=== PATIENT | female | born 1955 | race Caucasian/White ===

== ENCOUNTER 2023-12-17 10:02 | Outpatient (CLI) | payer MEDICARE, OTHER, SELFPAY | END 2023-12-17 10:03 | disposition home or self-care (01) | LOC: INJ CL 10:03 | PROVIDERS: PCP Family Medicine; Visit Provider Family Medicine | DX: M54.16 Radiculopathy, lumbar region (principal); M51.36 Other intervertebral disc degeneration, lumbar region | CPT/HCPCS: 62323; J0702; Q9966 ==

== ENCOUNTER 2024-09-22 09:49 | Outpatient (CLI) | payer MEDICARE, OTHER, SELFPAY ==
--- OUTSIDE RECORDS SUMMARY | 2024-09-17 11:38 | XMS_ITS | Clinical Summary ---
Author Organization [employer] [facility] Address [place], [place] [address] Care Team Providers Care Nurse Practitioner Hospitalist Name Role Phone Ramon Giraldo MD Primary Care Provider [phone] Destiny Coulter MD Unavailable Kris Uriostegui MD Unavailable [phone] Romel Frausto MD Unavailable [phone] Danielito Stokes MD Unavailable [phone] Allergies Active Allergy Reactions Criticality Noted Date Comments Erythromycin Hives High 05/15/2006 Penicillins Itching 05/15/2006 Sulfamethoxazole-Trimethoprim Shortness Of Breath Unknown 05/15/2006 Medications calcium-vitamin D3-vitamin K (VIACTIV) 500-100-40 mg-unit-mcg chewable Chew 1 Tablet by mouth once daily. 0 0 Active multivitamins-field examiner als-lutein (CENTRUM SILVER) 0.4 mg-300 mcg- 250 mcg tab Take 1 Tablet by mouth once daily. 0 6 Active fluticasone (50 mcg per actuation) nasal solution (FLONASE)Indication s:ETD (Eustachian tube dysfunction), bilateral Inhale 1 Wiley into affected nostril(s) once daily. 16 g 6 3 Active estradioL (VAGIFEM) 10 mcg tab vaginal tabletIndications:G enitourinary syndrome of menopause Insert 1 Tablet (10 mcg) into the vagina every Saturday and . 24 Tablet 3 4 Active triamcinolone 0.1 % ointment 4 Active lisinopriL (PRINIVIL; ZESTRIL) 20 mg tabletIndications:E ssential hypertension Take 1 Tablet (20 mg) by mouth once daily. For blood pressure. 90 Tablet 3 4 Active valACYclovir (VALTREX) 500 mg tabletIndications:H erpes simplex vulvovaginitis TAKE 1 TABLET TWICE A DAY FOR 5 DAYS NEEDED 30 Tablet 3 4 Active Active Problems Problem Noted Date Diagnosed Date Low back pain radiating to right leg 12/22/2023 Overview (12/22/2023): ~ December 2023: L4-L5 epidural steroid injection by Dr. Pate. Pap smear for cervical cancer screening 10/26/19 Overview (10/26/2022): 09/2022 NIL/HPV negative Plan: Routine screening Hamstring strain, left, initial encounter 2022 Trigger thumb, left thumb 04/10/2022 Osteoarthritis of left thumb 04/10/2022 Cellulitis of hand 02/15/2022 Dog bite 02/15/2022 COVID-19 02/15/2022 Lactose intolerance 05/09/2021 Overview (05/09/2021): diarrhea Primary osteoarthritis of fi rst carpometacarpal joint of left hand 12/05/2018 Overview (06/24/2020): November 2018: cortisone injection to [facility] Joint by Dr. Giraldo, 6 months of very good relief. November 2019: repeat Cortisone injection of Left Thumb CMC joint. 6 month of very good relief. June 2020: repeat Cortisone injection of Left Thumb CMC joint. Adenomatous colon polyp 12/02/2017 Overview (12/01/2020): Colonoscopy 11/2017 polyps, repeat in 3 years Incomplete Colonoscopy 11/2020 redundant colon, CT colonography negative for polyps, recommend repeat CT colonography every 5 years Bursitis of right hip 11/08/2016 Overview (11/09/2016): Oct 2016: Greater Trochanteric Bursa injection by Dr. Giraldo. Essential hypertension 02/04/2014 Overview (01/08/2024): December 2023: increased lisinopril to 20mg. Osteopenia 03/13/2013 Varicose vein 01/18/2012 Genital herpes, unspecified 04/29/2009 Overview (04/29/2009): discussed both treatment for each episode and prevnetion. For now patient would like to be on treatment jsut for episodes. Has prescription for either. Anxiety state, unspecified 10/21/2006 Osteoarthrosis, unspecified whether generalized or localized, hand 10/21/2006 Overview (04/14/2014): both thumbs CMC. Other atopic dermatitis and related conditions 0 10/21/2006 HERNIA, UMBILICAL W/OBSTRUCTION W/O GANGRENE Resolved Problems Problem Noted Date Diagnosed Date Resolved Date Iron deficiency anemia 02/17/201604/26 Right hip pain 12/25/2014 02/17/2016 Overview (12/25/2014): August 2014: Right Greater Trochanteric Bursa injection with great response initially, and pain gradually returned. December 2014: repeat Greater Trochanteric Bursa injection. Thickened endometrium 11/10/20142015 PMB (postmenopausal bleeding) 11/10/2014 02/17/2016 Trigger thumb of right hand 04/14/2014 02/17/2016 Overview (04/14/2014): Started January 2014, injection March 2014. 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 02/17/2016 Hallux valgus 07/03/2009 02/04/2014 Routine general medical exam ination at a health care facility 12/10/2007 02/17/2016 Overview (12/10/2007): Last colonoscopy 11/2007, repeat in 10 yrs Headache(784.0) 10/21/2006 02/04/2014 FX CLOSED METATARSAL 07/26/2001 007 Lumbago 10/21/2006 PELVIC PAIN 10/21/2006 Encounters Date Type Department Care Team Description 07/28/2024 11:10 AM DUST CONTROL ENGINEER Office Visit [facility] [address] [place] [address] Ramon Giraldo MD Musculoskeletal Problem (Follow-up Low Back Pain) 07/28/2024 Travel 07/24/2024 Travel 07/16/2024 Orders Only [facility] [address] [place] [address] Doris Hartmann PA <No scans attached> 06/22/2024 2:45 PM CDT Office Visit [facility] [address] [facility] [place] [address] Shabbir Cuello MD Follow Up (Plugged feeling in ear, bilateral) 06/22/2024 Travel from Last 3 Months Immunizations Name Administration Dates Next Due AMB Influenza, IIV3 (Age >=3 years)(Flu Clinic Only) 07/09/2012,06/29/2011,07/06/2010,07/14 COVID-19 VACCINE COMIRNATY (PFIZER-BIONTECH 30MCG/0.3ML) 12YO+ PFS 02/04/2024 COVID-19 vaccine (Moderna 100mcg/0.5mL) PF, MDV 12/14/2021,08/15/2021,01/04/2021,11/30 COVID-19 vaccine (Pfizer-Bio NTech 30mcg/0.3mL) 12YO+ BIVALENT PF, MDV 02/01/2023 HepA-HepB (Twinrix) 06/24/2009,01/19/2009,2008 Influenza A (H1N1), Inactiva alex (Age >=3 Years) 09/28/2009 Influenza, High-dose Quadriv alent Inactivated 06/19/2023,05/26/2022 Influenza, IIV3 (Age >=3 years) 06/24/20 09,07/24/2007,08/08/2005,07/26,07/31/2000 Influenza, IIV4 06/30/2021, 0,06/26/2019,06/07,06/05/2016,05/29/2015,07/05/2014 Influenza,CCIIV4 PRESERV FREE 07/17/2018 Pneumococcal Conj 20-valent (Prevnar 20) 12/21/2022 RSV, Recombinant ADJ Reconst ituted (Arexvy 120MCG/0.5mL) 09/02/2023 Td (Age >=7 Years) 03/17/2004 Td, Preservative Free (age >= 7 Years) 9 Tdap 03/12/2009 Zoster (Shingrix-RZV, recombinant) 01/13/2019, Family History Medical History Relation Name Comments Cancer Brother 1 bladder Diabetes Brother 1 Congenital heart disease Brother 2 Sharmaine n Syndrome, at age 5yo. Alcohol/Drug Father Brayden ETOH Alcoholism Father Brayden COPD Father Brayden Other Father Brayden emphysema at 71 Cancer Maternal Grandmother multipl e myloma Heart Disease Maternal Grandmother Anesthesia Problem Mother Fabi Heart Disease Mother Fabi 64 Hyperlipidemia Mother Fabi Hypertension Mother Fabi Osteoarthritis Mother Fabi Osteoporosis Mother Fabi Cancer-breast No Family History Relation Name Status Comments Brother 1 Alive Brother 2 Father Brayden Maternal Grandfather Maternal Grandmother Mother Fabi Paternal Grandfather Paternal Grandmother Social History Tobacco Use Types Packs/Day Years Used Date Smoking Tobacco: Never Passive Smoke Exposure: Never Smokeless Tobacco: Never Tobacco Cessation:Counseling Given: Not Answered Alcohol Use Standard Drinks/Week Comments Yes 0 (1 standard drink = 0.6 oz pur e alcohol) 1 drinks daily [facility] Utilities Answer Date Recorded Do you have trouble paying f or utilities (for example, heat, electricity, water, phone)? Yes 09/04/2023 PHQ-2 Answer Date Recorded PHQ-2 TOTAL SCORE 0 05/19/2024 Social Connections Answer Date Recorded Do you often feel lonely or isolated from those around you? 0 09/04/2023 Financial Resource Strain Answer Date R ecorded Difficulty of Paying Living Expenses 3 09/04/2023 Difficulty of Paying Living Expenses Not on file 09/04/2023 Food Insecurity Answer Date Recorded Do you worry your food will run out before you are able to buy more? 1 09/04/2023 Transportation Needs Answer Date Record ed Does lack of transportation keep you from medica l appointments? 1 09/04/2023 Does lack of transportation keep you from work, meetings or getting things that you need? 1 09/04/2023 Housing Stability Answer Date Recorded What is your housing situation today? 1 09/04/2023 Comments No Sex and Gender Information Value Date Recorded Sex Assigned at Not on file Legal Sex Female 5:25 AM DUST CONTROL ENGINEER Gender Identity Not on file Sexual Orientation Not on file Obstetrics History Para Term AB IAB SAB Ectopic Multiple Livin g Live Births 2 2 2 0 0 0 0 0 0 2 2 Date Outcome GA Total Labor Labor//3rd Weight Sex Type Anes PTL Grecia A1 A5 Name Clin 11/07 Term M C-Secti on Living 03/07 Term F Induced Living Last Filed Vital Signs Vital Sign Reading Time Taken Comments Blood Pressure 150/87 07/28/2024 11:13 AM DUST CONTROL ENGINEER Pulse 67 07/28/2024 11:13 AM DUST CONTROL ENGINEER Temperature 36.9 C (98.4 F) 02/22/2022 1:47 PM CDT Respiratory Rate 16 02/16/2022 2:32 AM CDT Oxygen Saturation 100% 07/28/2024 11: 13 AM DUST CONTROL ENGINEER Inhaled Oxygen Concentration - - Weight 56.2 kg (123 lb 14.4 oz) 024 11:13 AM DUST CONTROL ENGINEER Height 164.6 cm (5' 4.8) 07/28/2024 11 :13 AM DUST CONTROL ENGINEER Body Mass Index 20.74 07/28/2024 11:13 AM DUST CONTROL ENGINEER Plan of Treatment Upcoming Encounters Date Type Department Care Team (Late st Contact Info) Description 09/22/2024 10:20 AM DUST CONTROL ENGINEER Office Visit [facility] [address] [place] [address] Rob Pate MD [address] [place] [address] Health Maintenance Due Date Last Done Comments COVID-19 vaccine series ( season) 2024 02/04/2024, 06/19/2023, 02/01/2023, Additional history exists Influenza for age 65+ 05/17/2024 06/19/2023 , 05/26/2022, 06/30/2021, Additional history exists Mammogram for age 45-75 04/15/2025 04/15/20, 04/12/2023, 04/09/2022, Additional history exists Depression screening for age 12+ 05/22/2025 05/22/2024, 05/21/2024, 05/19/2024, Additional history exists Medicare Wellness for age 65+ 05/23/2025 05/22/2024, 02/01/2023 BMI (ht and wt on same day) for age 18+ 07/28/2025 07/28/2024, 05/22/2024, 09/20/2023, Additional history exists CT Colonography for age 45-75 11/29/2025 11/29/2020 Tetanus booster 04/27/2029 04/27/2019, 02/15, 03/17/2004 Lipids for age 45-75 06/09/2029 06/09/2024, 01/21/2024, 02/05/2023, Additional history exists Tdap Completed 03/12/2009 Hepatitis C screening for ag e 18-79 Completed 04/07/2018 Zoster (shingles) series for age 50+ Completed 01/13/2019, 11/13/2018 DEXA/DXA scan for age 65+ Completed 2021, 02/12/2019, 02/21/2016, Additional history exists Pneumococcal series for age 50+ Completed RSV vaccine for adults or Completed 09/02/2023 Medical Devices Implanted Type Area Drafter Geological Device Identifier Shelf Expiration Date Model / Serial / Lot Screw 2.7x20mm Bio Compression - [id number] Implanted:Qty: 1 on 08/02/2009 at [facility] Left: Foot [employer] 02/14/2011 [id number] # / / [id number] Explanted Type Area Drafter Geological Device Identifier Shelf Expiration Date Model / Serial / Lot Wire Kirs .[id number] Smooth6/Pk - [id number] Explanted:Qty: 1 on 08/02/2009 at [facility] Left: Foot DOROTHY 1646--000 # / / LOAD#[id number] Wire Kirs .[id number] Smooth6/Pk - [id number] Explanted:Qty: 1 on 08/02/2009 at [facility] Left: Foot VERAUY 1644--000 # / / LOAD#[id number] Procedures Procedure Name Priority Date/Time Associated Diagnosis Comments LIPID PANEL W REFLEX MEASURED LDL Routine 06/09/2024 12:00 AM CDT Hypercholesterolemi a XR MAMMO OREN BILAT SCREEN Routine 04/15/2024 11:12 AM CDT Encounter for screening mammogram for malignant neoplasm of breast XR DXA BONE DENSITY 2 SITES AXIAL Routine 03/05/2022 11:17 AM CDT Osteopenia, unspecified location CT ABDOMEN PELVIS COLONOGRAPHY DIAGNOSTIC W Routine 11/29/2020 12:48 PM CDT History of colon polyps Procedure and treatment not carried out for other reasons ANTI HCV Routine 04/07/2018 8:54 AM CDT Need for hepatitis C screening test from Last 3 Months or Most Recently Relevant to Health Maintenance Results * (ABNORMAL) LIPID PANEL W REFLEX MEASURED LDL (06/09/2024 12:00 AM CDT) CHOLESTEROL, TOTAL 217(H) <200 mg/dL [facility] HDL CHOLESTEROL 86 > OR = 50 mg/dL [facility] TRIGLYCERIDES 76 <150 mg/dL [facility] LDL-CHOLESTEROL 114(H) mg/dL (calc) [facility] Comment: Reference range: <100 Desirable range <100 mg/dL for primary prevention; <70 mg/dL for patients with CHD or diabetic patients with > or = 2 CHD risk factors. LDL-C is now calculated using the Erasto-Peralta calculation, which is a validated novel method providing better accuracy than the Friedewald equation in the estimation of LDL-C. Erasto SS et al. EZE. 2013;310(19): 6209-0033 (http://education.[employer]/faq/YUH862) CHOL/HDLC RATIO 2.5 <5.0 (calc) [facility] NON HDL CHOLESTEROL 131(H) <130 mg/dL (calc) [facility] Comment: For patients with diabetes plus 1 major ASCVD risk factor, treating to a non-HDL-C goal of <100 mg/dL (LDL-C of <70 mg/dL) is considered a therapeutic option. Blood BLOOD SPECIMEN / Unknown 06/09/2024 06/09/2024 7:58 AM CDT Ramon Giraldo MD CHEMISTRY Final Res ult [facility] [address] [place] [address], [facility] [address] [place] [address] * XR MAMMO OREN BILAT SCREEN (04/15/2024 11:12 AM CDT) Anatomical Region Laterality Modality BREASTS, Breast Left, Breast Right Bilateral Mammography Impressions 04/16/2024 1:38 PM CDT There is no radiographic evidence for malignancy. Recommend annual mammograms. MAMMOGRAM ASSESSMENT: ACR 1 Negative PATIENTS: You will also receive a letter with your examination results in an easy to read format. If you have questions about your results, please contact your referring provider. Narrative 04/16/2024 1:38 PM CDT For Patients: As a result of the 21st Century Cures Act, medical imaging exams and procedure reports are released immediately into your electronic medical record. You may view this report before your referring provider. If you have questions, please contact your health care provider. XR MAMMO OREN BILAT SCREEN [[id number]] CLINICAL HISTORY: This is an asymptomatic 69 y.o. patient. INDICATION FOR EXAM: Mammogram Screening. TECHNIQUE: CC & MLO views were obtained. This study was evaluated with the assistance of Computer-Aided Detection. Breast Tomosynthesis was used in interpretation. COMPARISON FILM: Yes 04/12/23 [facility] 04/09/22 [facility] FINDINGS: The breasts are heterogeneously dense, which may obscure small masses. There are no dominant masses, suspicious micro calcifications or areas of architectural distortion. us Ramon Giraldo MD MAMMO Final Res ult * (ABNORMAL) XR DXA BONE DENSITY 2 SITES AXIAL (03/05/2022 11:17 AM CDT) Anatomical Region Laterality Modality Spine, HIPS, HIPL, HIPR Other Impressions 03/06/2022 3:41 PM CDT Osteopenia. RECOMMENDATIONS: The National Osteoporosis Foundation recommends pharmacologic treatment for patients with T-scores of -2.5 or less, patients with prior history of fragility fractures, or patients with 10-year probability of greater than 3% at hips or greater than 20% of suffering major osteoporotic fractures. Recommend continued optimization of calcium and vitamin D intake through dietary means and/or supplementation and regular exercise. Repeat scan recommended in 3-5 years. Sara Molina PA-C [facility] 03/06/2022 Narrative 03/06/2022 3:41 PM CDT For Patients: Results are automatically released to your [facility] ([employer]) account once available, in compliance with federal regulations. This means that you may see your results before your provider has had a chance to review them. Please allow 2-3 business days for your provider to comment on the results. XR DXA Bone Mineral Density (BMD) EXAM LOCATION: [address] [address] PATIENT NAME: Kadie Ibrahim DATE OF : 1955 EXAM DATE: 03/05/2022 REQUESTING PROVIDER: Lissa Doyle MD GENDER AT : female HEIGHT: 5' 5 (02/15/2022) WEIGHT: 121 lb (02/22/2022) MENOPAUSAL STATUS: Postmenopausal RACE/ETHNICITY: White RISK FACTORS: Family History of Osteoporosis, Family History of Hip Fracture (parental) and White Race CURRENT MEDICATION FOR BONE LOSS: NONE INDICATION: Follow-up of existing osteopenia COMPARISON DATE(S): 2019 DXA scans are compared to prior studies for a patient only when the two (or more) studies were performed on the same scanner. It is not possible to compare data generated on one scanner to data from another because there are not standards in DXA equipment. This applies even if the two scanners are made by the same jack prizer. PROCEDURE: Dual-energy x-ray absorptiometry performed with routine technique. Reporting is completed in the form of a T-score. The T-score represents the standard deviation from peak bone mass based on young healthy adult. A Z-score is used for diagnosis in premenopausal women, and for men under the age of 50. FINDINGS: RESULT LUMBAR SPINE L1 - L4 BMD: 1.123 g/cm2 T-Score: - 0.5 Z-Score: + 1.4 Change from prior in 2019: Decrease 1.1%. RESULTS FEMUR Left femoral neck BMD: 0.801 g/cm2 T-Score: - 1.7 Z-Score: + 0.0 Change from prior in 2019: Decrease 2.8%. Right femoral neck BMD: 0.784 g/cm2 T-Score: - 1.8 Z-Score: - 0.2 Change from prior in 2019: Decrease 5.3%. Left hip BMD: 0.818 g/cm2 T-Score: - 1.5 Z-Score: - 0.1 Change from prior in 2019: Decrease 3.8%. Right hip BMD: 0.809 g/cm2 T-Score: - 1.6 Z-Score: - 0.2 Change from prior in 2019: Decrease 2.5%. WHO criteria: Normal: T-score at or above -1 SD Osteopenia: T-score between -1.1 and -2.4 SD Osteoporosis: T-score at or below -2.5 SD FRAX RISK CALCULATION (USED FOR OSTEOPENIA ONLY): 10-year probability of major osteoporotic fracture: 16.6%. 10-year probability of hip fracture: 1.3%. us Lissa Doyle MD DEXA Final Result * CT ABDOMEN PELVIS COLONOGRAPHY DIAGNOSTIC W (11/29/2020 12:48 PM CDT) Anatomical Region Laterality Modality Abdomen Other 11/29/2020 12:4 8 PM CDT Narrative 11/29/2020 5:30 PM CDT EXAM DATE: 11/29/2020 EXAM: CT COLONOGRAPHY LOCATION: [facility] DATE/TIME: 11/29/2020 1:00 PM INDICATION: Diagnostic; surveillance of resected polyp(s). Personal history of 19 mm serrated adenomatous colon polyp. Incomplete colonoscopy due to colonic redundancy. Colonoscopy reached the transverse colon. COMPARISON: Colonoscopy report from earlier today. TECHNIQUE: Prone and supine CT abdomen and pelvis with air insufflation per rectum, with image postprocessing. Oral contrast. Dose reduction techniques were used. CONTRAST: None. FINDINGS: COLON: Colon is tortuous and redundant. Colon is otherwise normal with no polyp, mass or stricture. No colonic perforation. All segments well seen. C Score: C1 Note: CT colonography is not intended for the detection of diminutive polyps 5 mm or less. ADDITIONAL FINDINGS: No significant finding in the liver, spleen, pancreas, adrenal glands, and kidneys. Normal caliber abdominal aorta. No pelvic masses. E Score: E1, Normal examination or anatomic variant IMPRESSION: 1. No colon polyp, mass or stricture. 2. Colonic tortuosity and redundancy. 3. No significant extracolonic findings. Procedure Note Robert Huerta MD - 12/01/2020 EXAM DATE: 11/29/2020 EXAM: CT COLONOGRAPHY LOCATION: [facility] DATE/TIME: 11/29/2020 1:00 PM INDICATION: Diagnostic; surveillance of resected polyp(s). Personalhistory of 19 mm serrated adenomatous colon polyp. Incomplete colonoscopy due to colonic redundancy. Colonoscopy reached the transverse colon. COMPARISON: Colonoscopy report from earlier today. TECHNIQUE: Prone and supine CT abdomen and pelvis with air insufflationper rectum, with image postprocessing. Oral contrast. Dose reductiontechniques were used. CONTRAST: None. FINDINGS: COLON: Colon is tortuous and redundant. Colon is otherwise normal with no polyp,mass or stricture. No colonic perforation. All segments well seen. C Score: C1 Note: CT colonography is not intended for the detection of diminutivepolyps 5 mm or less. ADDITIONAL FINDINGS: No significant finding in the liver, spleen,pancreas, adrenal glands, and kidneys. Normal caliber abdominal aorta. No pelvicmasses. E Score: E1, Normal examination or anatomic variant IMPRESSION: 1. No colon polyp, mass or stricture. 2. Colonic tortuosity and redundancy. 3. No significant extracolonic findings. us Erasto Vernon MD CT Final Res ult * ANTI HCV [[id number]] (04/07/2018 8:54 AM CDT) HEPATITIS C ANTIBODY Non-React mio Non-React mio 04/07/2018 4:13 PM CDT [facility] Comment:Antibodies to HCV no t detected; does not exclude the possibility of exposure to HCV. Blood BLOOD SPECIMEN / Unknown Venipuncture / Unknown 04/07/2018 8:54 AM CDT 04/07/2018 8:54 AM CDT us Esha Jeffery MD SEND OUTS Final Resul t [facility] [address] [place] [address], from Last 3 Months or Most Recently Relevant to Health Maintenance Insurance MEDICARE PB ONLY Host Committee MEDICARE PART B HB ONLY ATTN: [employer] PAY[employer] #[id number] [address] Advance Directives * Full Code (Latest Code Status on File) Date Activated Date Inactivated Comments 02/15/2022 11:05 AM 02/16/2022 1:04 PM Question Answer Comments Code Status Discussion: Reviewed Preferences * Full Code Date Activated Date Inactivated Comments 01/05/2015 10:03 AM 01/05/2015 3:26 PM * Full Code Date Activated Date Inactivated Comments 11/10/2014 7:55 AM 11/10/2014 1:25 PM Care Teams Nurse Practitioner Hospitalist Relationship Specialty Start Date End Date Ramon Giraldo MD [address] [place] [address] PCP - General Family Practice 12/21/22 [place] [address] [place] [address] Dermatology Family Practice 02/01/23 Kris Uriostegui MD [address] [facility] [address] [place] [address] Surgery - Otolaryngology 02/01/23 [place] [address] [place] [address] Sports Medicine - Family Medicine 02/01/23 [place] [address] [place] [address] Obstetrics and Gynecology 05/22/24
== END 2024-09-22 09:50 | disposition home or self-care (01) ==
LOC: INJ CL 09:50
PROVIDERS: PCP Family Medicine; Visit Provider Family Medicine
DX: M54.16 Radiculopathy, lumbar region (principal); M51.362 Other intervertebral disc degeneration, lumbar region with discogenic back pain and lower extremity pain
CPT/HCPCS: 62323; J0702; Q9966